=== PATIENT | female | born 1975 | race Caucasian/White ===

== ENCOUNTER 2017-06-25 07:51 | Emergency (ER) | payer OTHER ==
[2017-06-25] MEDS ORDERED: Ketorolac INJ* 30 MG/ML 1 ML VIAL IV ONE (08:12)
[2017-06-25] MEDS ORDERED: NS 0.9% 1000 ML* 1,000 ML IV ONE (08:12)
[2017-06-25] MEDS ORDERED: Ondansetron INJ* 2 MG/ML VIAL IV ONE (08:12)
[2017-06-25 09:06] LABS: Hematocrit 37 % (35-47); Hemoglobin 12.3 g/dl (12.0-16.0); Mean Corpuscular HGB Conc 33 g/dl (31-36); Mean Corpuscular Hemoglobin 26 pg (27-31); Mean Corpuscular Volume 80 fL (80-97); Mean Platelet Volume 7 um3 (7.4-10.4); Red Cell Distribution Width 16 % (10.5-15); White Blood Count 18.6 10^3/ul (3.5-10.8)
--- NOTE | 2017-06-25 09:21 | RAD ---
CLINICAL HISTORY: Left flank pain COMPARISON: None TECHNIQUE: Multiple contiguous axial CT scans were obtained of the abdomen and pelvis, without intravenous contrast enhancement. Coronal and sagittal multiplanar reformations are submitted for review. Oral contrast was not administered. FINDINGS: The study is limited by the lack of intravenous contrast. This limits evaluation of the solid organs and vasculature. LUNG BASES: The lung bases are clear. LIVER: The liver is diffusely low in attenuation compared to the spleen. The liver measures 19.4 cm in long axis. There are no focal hepatic parenchymal masses. BILE DUCTS: There is no intrahepatic or extrahepatic biliary dilatation. GALLBLADDER: The gallbladder is normal, without pericholecystic inflammatory change. PANCREAS: The pancreas is normal, without mass or ductal dilatation. SPLEEN: Normal in size and appearance. UPPER GI TRACT: Evaluation of the gastrointestinal tract is limited by incomplete gastric distention. The upper GI tract is unremarkable. SMALL BOWEL AND MESENTERY: The small bowel is normal in contour, course, and caliber. There is no obstruction or dilatation. COLON: The colon is normal in contour, course, caliber. There is no pericolonic inflammatory change. ADRENALS: Normal bilaterally. KIDNEYS: The left kidney is edematous. There is stranding of the perinephric fat. There is a punctate stone of the lower pole of left kidney. There is a 0.3 cm calculus of the mid left ureter with mild hydroureter and pelviectasis. BLADDER: The bladder is incompletely distended but is grossly normal. PELVIC ORGANS: The uterus and adnexa are grossly normal for technique. AORTA: The aorta is normal. IVC: Unremarkable LYMPH NODES: There is no lymphadenopathy by size criteria. ABDOMINAL WALL: There is diastasis recti the with a small fat-containing umbilical hernia. BONES AND SOFT TISSUES: Unremarkable OTHER: None IMPRESSION: 1. LEFT NEPHROLITHIASIS INCLUDING A SMALL LEFT MID URETERAL CALCULUS WITH MILD HYDRONEPHROSIS. 2. HEPATOMEGALY WITH FATTY INFILTRATION OF THE LIVER
[2017-06-25 09:22] LABS: BUN/Creatinine Ratio 10.8 (8-20); C Reactive Protein 25.48 mg/L (< 5.00); EGFR African American 86.3 (>60); EGFR Non-African American 67.1 (>60); Globulin 3.9 g/dL (2-4); Total Bilirubin 0.4 mg/dL (0.2-1.0); Total Protein 7.9 g/dL (6.4-8.9)
[2017-06-25 10:44] LABS: Urine Bacteria Absent (Absent); Urine Bilirubin Negative (Negative); Urine Glucose Negative (Negative); Urine Nitrite Negative (Negative)
[2017-06-25 11:23] VITALS: BP 142/83
--- NOTE | 2017-06-25 12:40 | ED ---
Jarvis Meek Natalie, scribed for Tico Sutton MD on 06/25/17 at 0834 . Abdominal Pain/Female - HPI Summary HPI Summary: The pt is a 41 y/o F BIBA to ED c/o sharp LLQ pain starting 03:30. She started feeling nauseous with vomiting and diarrhea yesterday at 17:00, but pain didnt start until this morning. The pain is rated 10/10. The pain is aggravated by movement and is alleviated by nothing. She does not currently have diarrhea, but is still vomiting occasionally. The pt takes medications for migraines and muscle spasms in legs. - History of Current Complaint Chief Complaint: EDNauseaVomitDiarrh Stated Complaint: GENERAL ILLNESS Time Seen by Provider: 06/25/17 07:58 Hx Obtained From: Patient Onset/Duration: Lasting Hours - pain starting at 03:30, Still Present Timing: Constant Severity Initially: Severe Severity Currently: Severe Pain Intensity: 10 Pain Scale Used: 0-10 Numeric Location: Discrete At: LLQ Aggravating Factor(s): Movement Alleviating Factor(s): Nothing Associated Signs and Symptoms: Positive: Nausea, Vomiting, Diarrhea Allergies/Adverse Reactions: Allergies Allergy/AdvReac Type Severity Reaction Status Date / Time No Known Allergies Allergy Verified 06/25/17 08:00 Home Medications: Home Medications Albuterol HFA INHALER* [Ventolin HFA Inhaler*] 2 puff INH BID PRN 06/25/17 [ History Confirmed 06/25/17] PMH/Surg Hx/FS Hx/Imm Hx Previously Healthy: No Opthamlomology History: Denies: Hx Legally Blind EENT History: Denies: Hx Deafness Neurological History: Reports: Hx Migraine Infectious Disease History: No Infectious Disease History: Denies: Traveled Outside the [place] in Last 30 Days - Family History Known Family History: Negative: Hypertension, Diabetes - Social History Alcohol Use: None Substance Use Type: Reports: None Smoking Status (MU): Former Smoker Review of Systems Negative: Fever Positive: Vomiting, Diarrhea, Nausea All Other Systems Reviewed And Are Negative: Yes Physical Exam - Summary Physical Exam Summary: Appearance: The patient is well-nourished in no acute distress and in no acute pain. Skin: The skin is warm and dry and skin color reflects adequate perfusion. HEENT: The head is normocephalic and atraumatic. The pupils are equal and reactive. The conjunctivae are clear and without drainage. Nares are patent and without drainage. Mouth reveals moist mucous membranes and the throat is without erythema and exudate. The external ears are intact. The ear canals are patent and without drainage. The tympanic membranes are intact. Neck: The neck is supple with full range of motion and non-tender. There are no carotid bruits. There is no neck vein distension. Respiratory: Chest is non-tender. Lungs are clear to auscultation and breath sounds are symmetrical and equal. Cardiovascular: Heart is regular rate and rhythm. There is no murmur or rub auscultated. There is no peripheral edema and pulses are symmetrical and equal. Abdomen: The patient has mild tenderness to LLQ. There are normal bowel sounds heard in all four quadrants and there is no organomegaly palpated. Musculoskeletal: There is no back tenderness noted. Extremities are non-tender with full range of motion. There is good capillary refill. There is no peripheral edema or calf tenderness elicited. Neurological: Patient is alert and oriented to person, place and time. The patient has symmetrical motor strength in all four extremities. Cranial nerves are grossly intact. Deep tendon reflexes are symmetrical and equal in all four extremities. Psychiatric: The patient has an appropriate affect and does not exhibit any anxiety or depression. Triage Information Reviewed: Yes Vital Signs On Initial Exam: Initial Vitals Temp Pulse Resp BP Pulse Ox 98.0 F 77 18 154/98 96 06/25/17 07:52 06/25/17 07:52 06/25/17 07:52 06/25/17 07:52 06/25/17 07:52 Vital Signs Reviewed: Yes Diagnostics - Vital Signs Vital Signs Temp Pulse Resp BP Pulse Ox 06/25/17 07:52 98.0 F 77 18 154/98 96 - Laboratory Lab Results: Lab Results 06/25/17 06/25/17 06/25/17 Range/Units 08:50 08:50 08:50 WBC 18.6 H (3.5-10.8) 10^3/ul RBC 4.70 (4.0-5.4) 10^6/ul Hgb 12.3 (12.0-16.0) g/dl Hct 37 (35-47) % MCV 80 (80-97) fL MCH 26 L (27-31) pg MCHC 33 (31-36) g/dl RDW 16 H (10.5-15) % Plt Count 358 (150-450) 10^3/ul MPV 7 L (7.4-10.4) um3 Neut % (Auto) 82.1 (38-83) % Lymph % (Auto) 11.2 L (25-47) % Ritchie % (Auto) 5.8 (1-9) % Eos % (Auto) 0.1 (0-6) % Baso % (Auto) 0.8 (0-2) % Absolute Neuts (auto) 15.3 H (1.5-7.7) 10^3/ul Absolute Lymphs (auto) 2.1 (1.0-4.8) 10^3/ul Absolute Monos (auto) 1.1 H (0-0.8) 10^3/ul Absolute Eos (auto) 0 (0-0.6) 10^3/ul Absolute Basos (auto) 0.2 (0-0.2) 10^3/ul Absolute Nucleated RBC 0.01 10^3/ul Nucleated RBC % 0.1 Sodium 135 (133-145) mmol/L Potassium 4.0 (3.5-5.0) mmol/L Chloride 103 (101-111) mmol/L Carbon Dioxide 22 (22-32) mmol/L Anion Gap 10 (2-11) mmol/L BUN 10 (6-24) mg/dL Creatinine 0.93 (0.51-0.95) mg/dL Est GFR ( Amer) 86.3 (>60) Est GFR (Non-Af Amer) 67.1 (>60) BUN/Creatinine Ratio 10.8 (8-20) Glucose 128 H (70-100) mg/dL Lactic Acid 0.9 (0.5-2.0) mmol/L Calcium 9.0 (8.6-10.3) mg/dL Total Bilirubin 0.40 (0.2-1.0) mg/dL AST 12 L (13-39) U/L ALT 12 (7-52) U/L Alkaline Phosphatase 83 (34-104) U/L C-Reactive Protein 25.48 H (< 5.00) mg/L Total Protein 7.9 (6.4-8.9) g/dL Albumin 4.0 (3.2-5.2) g/dL Globulin 3.9 (2-4) g/dL Albumin/Globulin Ratio 1.0 (1-3) Lipase 13 (11.0-82.0) U/L Urine Color Urine Appearance Urine pH (5-9) Ur Specific [place] (1.010-1.030) Urine Protein (Negative) Urine Ketones (Negative) Urine Blood (Negative) Urine Nitrate (Negative) Urine Bilirubin (Negative) Urine Urobilinogen (Negative) Ur Leukocyte Esterase (Negative) Urine WBC (Auto) (Absent) Urine RBC (Auto) (Absent) Ur Squamous Epith Cells (Absent) Urine Bacteria (Absent) Urine Glucose (Negative) 06/25/17 Range/Units 09:46 WBC (3.5-10.8) 10^3/ul RBC (4.0-5.4) 10^6/ul Hgb (12.0-16.0) g/dl Hct (35-47) % MCV (80-97) fL MCH (27-31) pg MCHC (31-36) g/dl RDW (10.5-15) % Plt Count (150-450) 10^3/ul MPV (7.4-10.4) um3 Neut % (Auto) (38-83) % Lymph % (Auto) (25-47) % Ritchie % (Auto) (1-9) % Eos % (Auto) (0-6) % Baso % (Auto) (0-2) % Absolute Neuts (auto) (1.5-7.7) 10^3/ul Absolute Lymphs (auto) (1.0-4.8) 10^3/ul Absolute Monos (auto) (0-0.8) 10^3/ul Absolute Eos (auto) (0-0.6) 10^3/ul Absolute Basos (auto) (0-0.2) 10^3/ul Absolute Nucleated RBC 10^3/ul Nucleated RBC % Sodium (133-145) mmol/L Potassium (3.5-5.0) mmol/L Chloride (101-111) mmol/L Carbon Dioxide (22-32) mmol/L Anion Gap (2-11) mmol/L BUN (6-24) mg/dL Creatinine (0.51-0.95) mg/dL Est GFR ( Amer) (>60) Est GFR (Non-Af Amer) (>60) BUN/Creatinine Ratio (8-20) Glucose (70-100) mg/dL Lactic Acid (0.5-2.0) mmol/L Calcium (8.6-10.3) mg/dL Total Bilirubin (0.2-1.0) mg/dL AST (13-39) U/L ALT (7-52) U/L Alkaline Phosphatase (34-104) U/L C-Reactive Protein (< 5.00) mg/L Total Protein (6.4-8.9) g/dL Albumin (3.2-5.2) g/dL Globulin (2-4) g/dL Albumin/Globulin Ratio (1-3) Lipase (11.0-82.0) U/L Urine Color Yellow Urine Appearance Cloudy Urine pH 5.0 (5-9) Ur Specific [place] 1.026 (1.010-1.030) Urine Protein 1+(30 mg/dl) H (Negative) Urine Ketones 2+ H (Negative) Urine Blood 3+ H (Negative) Urine Nitrate Negative (Negative) Urine Bilirubin Negative (Negative) Urine Urobilinogen Negative (Negative) Ur Leukocyte Esterase Negative (Negative) Urine WBC (Auto) Trace(0-5/hpf) (Absent) Urine RBC (Auto) 3+(>10/hpf) H (Absent) Ur Squamous Epith Cells Present H (Absent) Urine Bacteria Absent (Absent) Urine Glucose Negative (Negative) Result Diagrams: 06/25/17 08:50 06/25/17 08:50 Lab Statement: Any lab studies that have been ordered have been reviewed, and results considered in the medical decision making process. - CT Abdomen/Pelvis CT Interpretation: Positive (See Comments) - 1. Left nephrolithiasis including a small left mid ureteral calculus with mild hydronephrosis. 2. Hepatomegaly with fatty infiltration of the liver. ED physician has reviewed this report. CT Interpretation Completed By: Radiologist Abdominal Pain Fem Course/Dx - Course Course Of Treatment: Ms. Mcclure presented with some loose stools and N/V starting last night and then left flank pain starting at 0330. Her N/V continued and the stools stopped. She was mildly tender here and CT revealed a 3 mm left midureter stone with mild hydro. She will be treatede accordingly. Her U/A was fine and she was improved with IV NS and Toradol. The patient is diagnosed with kidney stones. The patient is instructed to take Percocet and Flomax as prescribed. She is to follow up with urology in three days. Patient is agreeable with this plan. - Diagnoses Provider Diagnoses: Kidney stones Discharge - Discharge Plan Condition: Stable Disposition: HOME Prescriptions: oxyCODONE/Acetamin 5/325 MG* [Percocet 5/325 TAB*] 1 tab PO Q6H PRN #20 tab MDD 4 PRN Reason: Pain Tamsulosin CAP* [Flomax CAP*] 0.4 mg PO DAILY #7 cap Patient Education Materials: Kidney Stones (ED) Referrals: Beni Gutierrez MD [Primary Care Provider] - 3 Days Additional Instructions: Take Percocet and Flomax as instructed. Follow up with a urologist in three days. Return to the Emergency Department if any new or worsening symptoms occur. The documentation as recorded by the Jarvis ward Natalie accurately reflects the service I personally performed and the decisions made by Herman medina Richard L, MD.
== END 2017-06-25 11:24 | disposition home or self-care (01) ==
LOC: ED 07:51
DX: N20.0 Calculus of kidney (principal); N13.2 Hydronephrosis with renal and ureteral calculous obstruction; K76.0 Fatty (change of) liver, not elsewhere classified; Z87.891 Personal history of nicotine dependence
CPT/HCPCS: 36415; 74176; 80053; 81003; 81015; 83605; 83690; 85025; 86140; 96360; 96374; 96375; 99285; J1885; J2405

== ENCOUNTER 2017-07-24 11:25 | Emergency (ER) | payer OTHER ==
--- NOTE | 2017-07-24 13:14 | RAD ---
HISTORY: Cough COMPARISONS: None VIEWS: 4: Frontal dual-energy and lateral views of the chest. FINDINGS: CARDIOMEDIASTINAL SILHOUETTE: The cardiomediastinal silhouette is normal. BRIANNA: The brianna are normal. PLEURA: The costophrenic angles are sharp. No pleural abnormalities are noted. LUNG PARENCHYMA: There is patchy alveolar opacification of the left lower lung ABDOMEN: The upper abdomen is clear. There is no subphrenic gas. BONES AND SOFT TISSUES: No bone or soft tissue abnormalities are noted. OTHER: None. IMPRESSION: PATCHY CONSOLIDATION OF THE LEFT LOWER LUNG
[2017-07-24 14:16] VITALS: BP 138/88
--- NOTE | 2017-07-24 18:19 | ED ---
Eduardo Meek Julia, scribed for Tico Sutton MD on 07/24/17 at 1236 . Complex/Multi-Sys Presentation - HPI Summary HPI Summary: This patient is a 41 year [facility] [place] with a chief complaint of bloody productive cough since this morning. Patient reports, productive cough for three days, congestion, fever, body aches, and chills. The patient rates the pain 9/10 in severity. Patient has history PNA. - History Of Current Complaint Chief Complaint: EDFluSymptoms Time Seen by Provider: 07/24/17 12:07 Hx Obtained From: Patient Onset/Duration: Lasting Days Timing: Constant Location: Pain At: - general body aches Associated Signs And Symptoms: Positive: Other - productive cough for three days , congestion, fever, body aches, and chills - Allergies/Home Medications Allergies/Adverse Reactions: Allergies Allergy/AdvReac Type Severity Reaction Status Date / Time Penicillins Allergy Hives Verified 07/24/17 13:39 PMH/Surg Hx/FS Hx/Imm Hx Respiratory History: Reports: Hx Pneumonia Sensory History: Denies: Hx Legally Blind, Hx Deafness Opthamlomology History: Denies: Hx Legally Blind Neurological History: Reports: Hx Migraine - Surgical History Surgery Procedure, Year, and Place: tubal Infectious Disease History: No Infectious Disease History: Denies: Traveled Outside the [place] in Last 30 Days - Family History Known Family History: Negative: Hypertension, Diabetes - Social History Alcohol Use: None Substance Use Type: Reports: None Smoking Status (MU): Former Smoker Review of Systems Positive: Fever, Chills, Other - body aches Positive: Cough - productive with blood, Other - congestion All Other Systems Reviewed And Are Negative: Yes Physical Exam - Summary Physical Exam Summary: Appearance: The patient is well-nourished in no acute distress and in no acute pain. Skin: The skin is warm and dry and skin color reflects adequate perfusion. HEENT: The head is normocephalic and atraumatic. The pupils are equal and reactive. The conjunctivae are clear and without drainage. Nares are patent and without drainage. Mouth reveals moist mucous membranes and the throat is without erythema and exudate. The external ears are intact. The ear canals are patent and without drainage. The tympanic membranes are intact. Neck: the neck is supple with full range of motion and non-tender. There are no carotid bruits. There is no neck vein distension. Respiratory: Chest is non-tender. Lungs have crackles in bilateral upper lungs and bases, breath sounds are symmetrical and equal. Cardiovascular: Heart is regular rate and rhythm. There is no murmur or rub auscultated. There is no peripheral edema and pulses are symmetrical and equal. Abdomen: The abdomen is soft and non-tender. There are normal bowel sounds heard in all four quadrants and there is no organomegaly palpated. Musculoskeletal: There is no back tenderness noted. Extremities are non-tender with full range of motion. There is good capillary refill. There is no peripheral edema or calf tenderness elicited. Neurological: Patient is alert and oriented to person, place and time. The patient has symmetrical motor strength in all four extremities. Cranial nerves are grossly intact. Deep tendon reflexes are symmetrical and equal in all four extremities. Psychiatric: The patient has an appropriate affect and does not exhibit any anxiety or depression. Triage Information Reviewed: Yes Vital Signs On Initial Exam: Initial Vitals Temp Pulse Resp BP Pulse Ox 100.8 F 91 22 134/80 95 07/24/17 11:43 07/24/17 11:43 07/24/17 11:43 07/24/17 11:43 07/24/17 11:43 Vital Signs Reviewed: Yes - [place] Coma Scale Coma Scale Total: 15 Diagnostics - Vital Signs Vital Signs Temp Pulse Resp BP Pulse Ox 07/24/17 12:00 94 127/84 96 07/24/17 11:50 92 129/79 98 07/24/17 11:48 94 97 07/24/17 11:43 100.8 F 91 22 134/80 95 - Laboratory Lab Results: Lab Results 07/24/17 Range/Units 12:40 Influenza A (Rapid) Negative (Negative) Influenza B (Rapid) Negative (Negative) Lab Statement: Any lab studies that have been ordered have been reviewed, and results considered in the medical decision making process. - Radiology CXR Radiology Interpretation Completed By: Radiologist - PATCHY CONSOLIDATION OF THE LEFT LOWER LUNG. ED Physician has reviewed this report. Complex Multi-Symp Course/Dx Course Of Treatment: Ms. Mcclure presented with a few days of congestion and cough. She was negative for flu but had an infiltrate on CXR and was given antibiotics. She was borderline tachycardic but stable while here. - Diagnoses Provider Diagnoses: PNA (pneumonia) Discharge - Discharge Plan Condition: Stable Disposition: HOME Prescriptions: Clarithromycin TAB* [Biaxin TAB*] 500 mg PO BID #20 tab Guaifenesin-Codeine [Guaiatussin AC 100-10 mg/5Ml] 5 ml PO Q4HR #120 ml MDD 30 cc Patient Education Materials: Pneumonia (ED) Referrals: Beni Gutierrez MD [Primary Care Provider] - Additional Instructions: Patient is instructed to follow up with Primary Care Physician next week. Patient is prescribe with Biaxin and Guaiatussin. RETURN TO THE EMERGENCY DEPARTMENT FOR CHANGING OR WORSENING SYMPTOMS. The documentation as recorded by the Eduardo ward Julia accurately reflects the service I personally performed and the decisions made by , Tico Sutton MD.
== END 2017-07-24 14:16 | disposition home or self-care (01) ==
LOC: ED 11:25
DX: J18.9 Pneumonia, unspecified organism (principal); Z87.891 Personal history of nicotine dependence; Z88.0 Allergy status to penicillin
CPT/HCPCS: 71046; 87502; 99282